=== PATIENT | female | born 1950 | race Caucasian/White ===

== ENCOUNTER 2024-10-02 19:35 | Emergency (ER) | payer MEDICARE ==
[~2024-10-02] VITALS: Ht 152.4 cm; Wt 60.0 kg
[~2024-10-02 19:35] MED LIST: AZITHROMYCIN250 MG PO; CRESTOR10 MG PO
[2024-10-02 19:42] VITALS: BP 132/52
[2024-10-02] MEDS ORDERED: IBUPROFEN 600 MG/TAB PO ONE (19:50)
[2024-10-02] MEDS ORDERED: SODIUM CHLORIDE 0.9% 1,000 ML IV ONE ×2 (19:50→21:35)
[2024-10-02] MEDS ORDERED: ACETAMINOPHEN 500 MG TAB PO ONE (19:50)
[2024-10-02] MEDS ORDERED: methylPREDNISolone SODIUM SUCC 125 MG/2 ML SDV IV ONE (19:55)
[2024-10-02] MEDS ORDERED: ALBUTEROL SULFATE 2.5 MG VIAL IN ONE (19:55)
[2024-10-02] MEDS ORDERED: IPRATROPIUM-Albuterol 0.5MG-2.5MG/3 ML NEB ONE (19:55)
[2024-10-02 20:00] VITALS: BP 131/47
[2024-10-02 20:21] LABS: BASO% 0.3 % (0-3); HEMATOCRIT 36.7 % (37.0-47.0); HEMOGLOBIN 12.6 g/dl (12.0-16.0); IMMATURE GRANULOCYTES 0.3 % (0.0-5.0); LYMPH% 9.5 % (15-41); MEAN CELL VOLUME 90.2 fL CALC (80.0-100.0); MEAN CORPUSCULAR HGB CONC 34.3 g/dL CAL (32.0-36.0); MONO% 8.6 % (2-13); NEUT# 5.83 thou/uL (2.00-7.15); NEUT% 81.3 % (42-76); RED BLOOD COUNT 4.07 mill/uL (4.20-5.60); RED CELL DISTRI WIDTH 12.6 % (11.5-15.5)
[2024-10-02 20:36] LABS: ALBUMIN 4.1 g/dL (3.2-5.0); BILIRUBIN, TOTAL 0.9 mg/dL (0.02-1.3); CREATININE 0.9 mg/dL (0.5-1.0); POTASSIUM 4.3 mmol/l (3.5-5.1); TOTAL PROTEIN 6.7 g/dL (6.3-8.2)
[2024-10-02 21:00] VITALS: BP 129/42
[2024-10-02 21:30] VITALS: BP 149/69
[2024-10-02] MEDS ORDERED: OSELTAMIVIR PHOSPHATE 75 MG/TAB CAP PO ONE (21:35)
[2024-10-02 22:36] LABS: URINE BILIRUBIN - DIPSTICK Negative (NEGATIVE); URINE BLOOD DIPSTICK Negative (NEGATIVE); URINE GLUCOSE - DIPSTICK Negative (NEGATIVE); URINE KETONE 15 mg/dL (NEGATIVE); URINE NITRITE - DIPSTICK Negative (Negative); URINE PH 5.5 (4.5-8.0); URINE PROTEIN - DIPSTICK 30 mg/dL (NEG-TRACE); URINE SPECIFIC GRAVITY 1.015; URINE UROBILINOGEN - DIPSTICK 0.2 E.U./dL (0.2)
[2024-10-02 22:38] LABS: URINE COLOR Yellow; URINE LEUK ESTERASE Small (NEGATIVE)
[2024-10-02 22:56] LABS: URINE RBC 0-2 RBC/hpf (0-5)
[2024-10-02 22:57] LABS: URINE BACTERIA RARE hpf; URINE SQUAMOUS EPITHELIAL CELL FEW EPI/hpf (0-FEW)
[2024-10-02 22:58] LABS: URINE MUCUS FEW hpf (NONE-FEW)
[2024-10-02] MEDS ORDERED: TAM75CAP PO (23:10)
[2024-10-02 23:12] VITALS: BP 149/69
== END 2024-10-02 23:15 | disposition home or self-care (01) ==
LOC: ED 19:35
PROVIDERS: Family Medicine
DX: J10.1 Influenza due to other identified influenza virus with other respiratory manifestations (principal); I10 Essential (primary) hypertension; Z20.822 Contact with and (suspected) exposure to COVID-19